=== PATIENT | female | born 1960 | race African-American/Black ===

== ENCOUNTER 2018-07-01 09:38 | Day surgery (SDC) | payer OTHER ==
[~2018-07-01] VITALS: Ht 167.6 cm; Wt 88.9 kg
[~2018-07-01 09:38] MED LIST: ALBU0.63 NEB; ALLO100T PO; AMLO10TA4 PO; AMLO5TAB7 PO; HYDR-2762 PO; HYDROmorphone 2 MG/ML VIAL IV PRN; IBUP-1227 PO; IPRA3AMP29 NEB; IPRA4AER IH; IV RINGERS,LACTATED 1000ML 1,000 ML IV SCH; LIDOCAINE 1% PF 2 ML VIAL. ID PRN; LISI-334 PO; Lisinopril PO; MORPHINE SULFATE 2 MG/ML VIAL. IV PRN; NAPR500T8 PO; Nicotine TD; ONDANSETRON PF 4 MG/2 ML VIAL. IV PRN; PANT40TA3 PO; PROCHLORPERAZINE 10 MG/2 ML VIAL. IV PRN; PROPOFOL 20 ML IV ONE; TRAM50TA PO; VARE1TAB21 PO; fentaNYL PF VIAL 100 MCG/2 ML VIAL IV PRN; fentaNYL PF VIAL 100 MCG/2 ML VIAL ONE
[2018-07-01] MEDS ORDERED: BUPIVACAINE MPF 0.5% 30 ML VIAL. ONE (10:05)
[2018-07-01] MEDS ORDERED: CLINDAMYCIN 900MG PREMIX 50 ML IV ONE (10:30)
--- NOTE | 2018-07-01 10:30 | DISCH ---
DISCHARGE INSTRUCTIONS Condition on Discharge Condition on Discharge: Stable Activity After Discharge Activity Instructions for Disc: Activity as tolerated, Other, see below Bathing Instructions: Shower-keep dressing dry Lifting Instructions after Dis: No heavy lifting Exercise Instruction after Dis: Progress as tolerated Driving Instructions after Dis: Do not drive Weight Bearing Status after Di: Non weight bearing Diet after Discharge Diet after Discharge: Regular Diet Texture: Regular Liquid Texture: Thin Liquid Swallowing Supervision: None needed Wound Incision Care Wound/Incision Care: No wound care needed Checks after Discharge Checks after discharge: Check blood press - daily Contacting the [facility] after DC Call your doctor for: Concerns you may have Follow-Up Follow up with: Katheryn in 2 wks Treatment/Equipment after DC Adaptive Equipment Issued: Erlinchair ANGELIC ROSALES II, MD Jul 01, 2018 10:30
[2018-07-01] MEDS ORDERED: SEVOFLURANE 61 TO 120 MINUTES. IH ONE (10:55)
[2018-07-01] MEDS ORDERED: ONDANSETRON PF 4 MG/2 ML VIAL. ONE (10:55)
[2018-07-01] MEDS ORDERED: DEXAMETHASONE SOD PHOS 20 MG/5 ML VIAL. ONE (10:55)
[2018-07-01] MEDS ORDERED: LIDOCAINE 1% Multi-Dose 50 ML VIAL. INJ ONE (11:15)
--- NOTE | 2018-07-01 11:49 | PDOC4 ---
Operative Note Operative Note Date of procedure: 07/01/2018 Surgeon: Yasir Rosales [employer] Manager: Torie Lee, board certified family physician Preoperative diagnosis: #1 Closed left distal fibula fracture #2 fractures at his metatarsals 2 3 and 4, closed Postoperative diagnosis: #1 closed left distal fibula fracture #2 fractures of metatarsals 2 and 3 and 4, closed Procedure performed: #1 open reduction internal fixation left distal fibula fracture #2 examination under anesthesia, stress view, left ankle #3 nonoperative treatment of fractures of metatarsals 23 and 4 Anesthesia: Gen. Findings: Lateral talar shift present with external rotation stress under sedation Blood loss: 10 mL Tourniquet time: Less than 60 minutes Components inserted: Flores and nephew 5 hole distal fibula locking plate Reason for procedure. Patient is a 50-year-old female had a twisting injury to 4 and ankle. I'd seen in consultation last week. Given her metatarsal fractures she was unable to tolerate weightbearing and therefore I discussed local anesthetic and stress view versus examination under anesthesia and she elected to proceed with the examination under anesthesia. The risks, benefits, and alternatives were discussed with her and she wished to proceed. Description of procedure: Patient was greeted in the preoperative holding area where the correct extremity was verified and marked. I inspected her soft tissues, amenable for today's procedure. She was taken back to the operative suite and her antibiotics started as she was brought back. Once in the operating room, transferred gently supine to the OR table and secured to the bed with all pressure points padded. She underwent sedation monitored by anesthesia with propofol. I brought in C-arm and perform my examination under anesthesia which confirmed lateral talar shift. We then applied a nonsterile tourniquet and taped in place. She underwent general anesthetic with an LMA at this point. Left lower extremity prepped and draped in our usual sterile fashion. Timeout was conducted. Extremity was exsanguinated with an Esmarch and tourniquet insufflated to 250 mmHg. After this, I palpated and marked surface anatomy and afshan a line from a straight lateral incision. I incised skin with a scalpel and dissected subcutaneous tissues tissue with Metzenbaums, using electrocautery for hemostasis. Identified the fracture site and used a periosteal elevator to expose the bone in anticipation my plate application. I used a combination of small Jace, dental pick, metal tipped suction device to debride the fracture site. The fracture was then reduced with [id number] clamp, checked under biplanar fluoroscopy. Given the narrow medial lateral dimension of her bone, I felt that risked comminuting this area and elected not to place a screw in lag fashion across the fracture site. At this point, I held my plate against bone and took my images and was happy with plate position. I then secured it with a nonlocking screw proximal fracture site and one distal to the fracture site. I then filled the remainder the screw holes distal to the fracture site with locking screws. I avoided the fracture site and placed 2 more nonlocking screws through the shaft and plate. I then performed an extra rotation stress test, no widening noted. I then took my final 3 views and was happy with fracture reduction and hardware position. The wound was then irrigated out with sterile saline. I close fascia with simple interrupted #1 Vicryl. Inverted interrupted 2-0 Vicryl used for subcutaneous tissue and 2-0 nylon in a mattress fashion for skin. Approximately 20 mL of a local anesthetic mixture was infiltrated into the subcutaneous. Incisional tissues. The leg was cleansed and dried and a sterile dressing was applied followed by a well-padded AO splint. Tourniquet was let down. Patient was awakened from anesthesia, no complications. Surgery was well tolerated by her. At the conclusion of the surgery, she was transferred gently supine to the recovery room cart and taken to the PACU in a stable and extubated condition. Postoperative plan is to discharge her home, nonweightbearing, she will follow up with me in 2 weeks, sooner should a problem arise YASIR ROSALES II, MD Jul 01, 2018 11:49
[2018-07-01] MEDS ORDERED: OXYC-323 PO (12:07)
[2018-07-01] MEDS ORDERED: hydrALAZINE 20 MG/ML VIAL. IVP ONE (12:45)
[2018-07-01] MEDS ORDERED: LABETALOL 20 MG/4 ML DISP.SYRIN. IVP ONE (13:07)
[2018-07-01 13:45] VITALS: BP 156/94
== END 2018-07-01 13:45 | disposition home or self-care (01) ==
LOC: SURG 09:38
PROVIDERS: ATTEND Orthopaedic Surgery Sports Medicine
DX: S82.62XA Displaced fracture of lateral malleolus of left fibula, initial encounter for closed fracture (principal); S92.322A Displaced fracture of second metatarsal bone, left foot, initial encounter for closed fracture; S92.332A Displaced fracture of third metatarsal bone, left foot, initial encounter for closed fracture; S92.342A Displaced fracture of fourth metatarsal bone, left foot, initial encounter for closed fracture; I10 Essential (primary) hypertension; J44.9 Chronic obstructive pulmonary disease, unspecified; Z86.73 Personal history of transient ischemic attack (TIA), and cerebral infarction without residual deficits; Z98.890 Other specified postprocedural states; Z72.89 Other problems related to lifestyle; F12.90 Cannabis use, unspecified, uncomplicated; F14.10 Cocaine abuse, uncomplicated; Z79.899 Other long term (current) drug therapy; Z88.0 Allergy status to penicillin; X50.1XXA Overexertion from prolonged static or awkward postures, initial encounter; Y93.89 Activity, other specified; Y92.89 Other specified places as the place of occurrence of the external cause; Y99.8 Other external cause status
CPT/HCPCS: 27792; 76000; A7015; J1100; J2405; J2704; J3010; J3490; J7120; J0360

== ENCOUNTER 2018-07-07 15:44 | Emergency (ER) | payer OTHER ==
[~2018-07-07] VITALS: Ht 154.9 cm; Wt 77.1 kg
[~2018-07-07 15:44] MED LIST changes: -HYDROmorphone 2 MG/ML VIAL IV PRN; -IV RINGERS,LACTATED 1000ML 1,000 ML IV SCH; -LIDOCAINE 1% PF 2 ML VIAL. ID PRN; -MORPHINE SULFATE 2 MG/ML VIAL. IV PRN; -ONDANSETRON PF 4 MG/2 ML VIAL. IV PRN; +OXYC-323 PO; -PROCHLORPERAZINE 10 MG/2 ML VIAL. IV PRN; -PROPOFOL 20 ML IV ONE; -fentaNYL PF VIAL 100 MCG/2 ML VIAL IV PRN; -fentaNYL PF VIAL 100 MCG/2 ML VIAL ONE
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
[2018-07-07 16:56] LABS: BASO # 0.1 x10^3/uL (0.0-0.2); BASO % 1 % (0-3); EOS # 0.1 x10^3/uL (0.0-0.7); EOS % 1 % (0-3); HEMATOCRIT 40.8 % (36.0-47.0); HEMOGLOBIN 13.5 g/dL (12.0-15.5); LYMPH % 32 % (24-48); MEAN CORPUSCULAR HEMOGLOBIN 28 pg (25-35); MEAN CORPUSCULAR HGB CONC 33 g/dL (31-37); MEAN CORPUSCULAR VOLUME 84 fL (79-100); MONO # 0.5 x10^3/uL (0.0-1.1); MONO % 8 % (0-9); NEUT # 3.6 x10^3uL (1.8-7.7); NEUT % 58 % (31-73); PLATELET COUNT 241 x10^3/uL (140-400); RED BLOOD COUNT 4.88 x10^6/uL (3.50-5.40); RED CELL DISTRIBUTION WIDTH 15.8 % (11.5-14.5); WHITE BLOOD COUNT 6.2 x10^3/uL (4.0-11.0)
[2018-07-07] MEDS ORDERED: amLODIPine BESYLATE 5 MG TABLET PO ONE (17:00)
[2018-07-07 17:07] LABS: CALCIUM 9.5 mg/dL (8.5-10.1); CREATININE 1.3 mg/dL (0.6-1.0); GFR 50.9; POTASSIUM 3.8 mmol/L (3.5-5.1)
[2018-07-07 17:13] LABS: ALBUMIN 3.3 g/dL (3.4-5.0); ALBUMIN/GLOBULIN RATIO 0.7 (1.0-1.7); TOTAL BILIRUBIN 0.2 mg/dL (0.2-1.0); TOTAL PROTEIN 7.8 g/dL (6.4-8.2)
[2018-07-07 17:39] LABS: BILIRUBIN,URINE NEGATIVE (NEG); COLOR,URINE YELLOW; NITRITE,URINE NEGATIVE (NEG); PH,URINE 5.5; PROTEIN,URINE 100 mg/dL (NEG-TRACE); UROBILINOGEN,URINE 0.2 mg/dL (0.2 mg/dL)
[2018-07-07 17:59] LABS: CLARITY,URINE CLEAR
[2018-07-07 18:01] VITALS: BP 166/108
[2018-07-07 18:01] LABS: BACTERIA,URINE FEW /HPF (0-FEW); RBC,URINE 0 /HPF (0-2); SQUAMOUS EPITHELIAL CELL,UR FEW /LPF; WBC,URINE 0 /HPF (0-4)
--- NOTE | 2018-07-08 01:29 | EKG ---
[facility] [address] [place] [address] Test Date: 2018-07-07 Test Time: 17:00:41 Pat Name: JACQUES RIOS Department: Room: Gender: F Broom Maker: : [id number] Requested By: OLENA CHOUDHURY Order Number: [id number] Reading MD: Johnathan Umanzor MD Measurements Intervals Cook Rate: 90 P: 31 IL: 210 QRS: -35 QRSD: 72 T: 66 QT: 358 QTc: 442 Interpretive Statements SINUS RHYTHM PROLONGED IL INTERVAL ABNORMAL LEFT AXIS DEVIATION LEFT ANTERIOR FASCICULAR BLOCK T ABNORMALITY IN HIGH LATERAL LEADS ABNORMAL ECG Electronically Signed On 07-09-2018 9:54:12 CDT by Johnathan Umanzor MD
== END 2018-07-07 18:20 | disposition home or self-care (01) ==
LOC: ER 15:44
DX: R03.0 Elevated blood-pressure reading, without diagnosis of hypertension (principal); R80.9 Proteinuria, unspecified; Z91.14 Patient's other noncompliance with medication regimen; Z88.0 Allergy status to penicillin
CPT/HCPCS: 36415; 80053; 81001; 83880; 84484; 85025; 93005; 99285; G0480

== ENCOUNTER 2019-05-24 12:11 | Inpatient (IN) | payer MEDICAID, OTHER ==
[~2019-05-24] VITALS: Ht 162.6 cm; Wt 81.3 kg
[~2019-05-24 12:11] MED LIST changes: +AMLO5TAB10 PO; -AMLO5TAB7 PO; -HYDR-2762 PO; +HYDR-2765 PO; -IBUP-1227 PO; +IBUP-1670 PO; -OXYC-323 PO; +OXYC1TAB15 PO; -PANT40TA3 PO; +PANT40TA77 PO
[2019-05-24 13:36] LABS: BASO # 0.1 x10^3/uL (0.0-0.2); BASO % 1 % (0-3); EOS # 0.2 x10^3/uL (0.0-0.7); EOS % 3 % (0-3); HEMATOCRIT 39.8 % (36.0-47.0); HEMOGLOBIN 13.1 g/dL (12.0-15.5); LYMPH # 1.6 x10^3/uL (1.0-4.8); LYMPH % 30 % (24-48); MEAN CORPUSCULAR HEMOGLOBIN 27 pg (25-35); MEAN CORPUSCULAR HGB CONC 33 g/dL (31-37); MEAN CORPUSCULAR VOLUME 82 fL (79-100); MONO # 0.3 x10^3/uL (0.0-1.1); MONO % 6 % (0-9); NEUT # 3.3 x10^3/uL (1.8-7.7); NEUT % 60 % (31-73); PLATELET COUNT 175 x10^3/uL (140-400); RED BLOOD COUNT 4.82 x10^6/uL (3.50-5.40); WHITE BLOOD COUNT 5.4 x10^3/uL (4.0-11.0)
[2019-05-24 13:45] LABS: PROTHROMBIN TIME PATIENT 13.8 SEC (11.7-14.0)
[2019-05-24 13:50] LABS: CALCIUM 9.3 mg/dL (8.5-10.1); CREATININE 1.4 mg/dL (0.6-1.0); GFR 46.6; POTASSIUM 3.5 mmol/L (3.5-5.1)
[2019-05-24 13:56] LABS: ALBUMIN 3.4 g/dL (3.4-5.0); ALBUMIN/GLOBULIN RATIO 0.8 (1.0-1.7); TOTAL BILIRUBIN 0.5 mg/dL (0.2-1.0); TOTAL PROTEIN 7.6 g/dL (6.4-8.2)
--- NOTE | 2019-05-24 13:59 | RAD ---
CT HEAD WO CONTRAST Indication: Headache, history of aneurysms Exposure: One or more of the following individualized dose reduction techniques were utilized for this examination: 1. Automated exposure control 2. Adjustment of the mA and/or kV according to patient size 3. Use of iterative reconstruction technique. Technique: Standard imaging without intravenous contrast. Comparison: 06/24/2018 FINDINGS: Motion during exam results in image degradation. No definite acute intracranial hemorrhage, mass effect, midline shift or abnormal extra-axial fluid collection. Low-density in the white matter bilaterally, a nonspecific finding, but which is commonly due to chronic small vessel ischemic disease in a patient of this age. Low-density in the right basal ganglia region may be new since the previous study, compatible with ischemia in the interval. Generalized atrophy. Moderate mucosal thickening of the sphenoid sinus. No evidence of skull abnormality. Visualized orbits appear unremarkable. IMPRESSION: 1. Exam limited due to motion degradation. 2. Subtle area of hypoattenuation in the right periventricular white matter or basal ganglia, could represent an area of small vessel ischemia which occurred in the interim since the old study, but age indeterminate. MR could be more accurate for detection of acute ischemia, as indicated. 3. No definite acute intracranial hemorrhage. 4. Sphenoid sinus disease. Electronically signed by: Cezar Sherman MD (05/24/2019 1:56 PM) [facility]
[2019-05-24] MEDS ORDERED: ASPIRIN 325 MG TABLET PO ONE (14:15)
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
--- NOTE | 2019-05-24 14:38 | RAD ---
Single view portable chest HISTORY: Shortness of breath COMPARISON: None FINDINGS: The cardiomediastinal silhouette is widened. Hazy opacity in both lungs, greater towards the bases, compatible with infiltrate/edema. No large pleural effusion. No evidence of pneumothorax. Central vascular congestion. No definite bone abnormality. Some density along the right paratracheal chest is probably vascular, has a fairly smooth margin. IMPRESSION: 1. Findings suggest congestive changes with bilateral pulmonary edema or infiltrate. Some enlargement of cardiac silhouette. 2. Widening of the right superior mediastinum is probably vascular in nature. Could be observed on future imaging. Electronically signed by: Cezar Sherman MD (05/24/2019 2:35 PM) [facility]
[2019-05-24] MEDS: hydrALAZINE 20 MG/ML VIAL. IVP PRN ×2 (14:57→19:51)
[2019-05-24] MEDS ORDERED: FUROSEMIDE 20 MG/2 ML VIAL. IVP SCH (15:00)
[2019-05-24 16:21] LABS: BILIRUBIN,URINE NEGATIVE (NEG); CLARITY,URINE CLEAR; COLOR,URINE YELLOW; NITRITE,URINE NEGATIVE (NEG); PH,URINE 6.5; PROTEIN,URINE NEGATIVE (NEG-TRACE); UROBILINOGEN,URINE 0.2 mg/dL (0.2 mg/dL)
[2019-05-24 16:27] LABS: BACTERIA,URINE MODERATE /HPF (0-FEW); BARBITURATES NEG (NEG); BENZODIAZEPINES NEG (NEG); CANNABINOIDS NEG (NEG); COCAINE POS (NEG); METHADONE NEG (NEG); OPIATES NEG (NEG); PHENCYCLIDINE NEG (NEG); RBC,URINE 0 /HPF (0-2); SQUAMOUS EPITHELIAL CELL,UR MOD /LPF; WBC,URINE 0 /HPF (0-4)
[2019-05-24 16:28] LABS: AMPHETAMINE/METHAMPHETAMINE NEG (NEG)
[2019-05-24] MEDS ORDERED: LISI10TA2 PO (16:51)
[2019-05-24 17:04] VITALS: BP 174/117
--- NOTE | 2019-05-24 17:04 | EKG ---
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
[2019-05-24 17:16] VITALS: BP 175/115
[2019-05-24] MEDS ORDERED: FUROSEMIDE 20 MG TABLET PO SCH (17:45)
[2019-05-24] MEDS: LISINOPRIL 20 MG TABLET PO SCH (18:15)
[2019-05-24] MEDS: POTASSIUM CHLORIDE 20 MEQ TABLET.ER. PO SCH (18:15)
[2019-05-24] MEDS: amLODIPine BESYLATE 10 MG TABLET PO SCH (18:15)
[2019-05-24] MEDS ORDERED: FUROSEMIDE 20 MG TABLET PO ONE (18:30)
[2019-05-24] MEDS: IPRATRPIUM/ALBUTEROL 0.5/2.5MG 3 ML NEBU. NEB SCH (19:11)
[2019-05-24 19:37] VITALS: BP 184/122
[2019-05-24 22:54] VITALS: BP 152/96
[2019-05-25 03:30] VITALS: BP 132/92
[2019-05-25 06:34] LABS: CALCIUM 9.5 mg/dL (8.5-10.1); CREATININE 1.2 mg/dL (0.6-1.0); GFR 55.6; POTASSIUM 3.3 mmol/L (3.5-5.1)
--- NOTE | 2019-05-25 06:59 | EKG ---
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
[2019-05-25 07:00] VITALS: BP 139/100
--- NOTE | 2019-05-25 07:02 | EKG ---
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
[2019-05-25] MEDS: POTASSIUM CHLORIDE 20 MEQ TABLET.ER. PO SCH (08:00)
[2019-05-25] MEDS: ACETAMINOPHEN 325 MG TABLET. PO PRN ×2 (08:02→20:27)
[2019-05-25] MEDS: IPRATRPIUM/ALBUTEROL 0.5/2.5MG 3 ML NEBU. NEB SCH ×4 (08:27→20:34)
--- NOTE | 2019-05-25 08:49 | EKG ---
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
[2019-05-25] MEDS: FUROSEMIDE 40 MG TABLET. PO SCH (09:11)
[2019-05-25] MEDS: LISINOPRIL 20 MG TABLET PO SCH (09:11)
[2019-05-25] MEDS: amLODIPine BESYLATE 10 MG TABLET PO SCH (09:11)
--- NOTE | 2019-05-25 10:09 | PDOC2 ---
CARDIAC CONSULT DATE OF CONSULT Date of Consult DATE: 05/25/19 TIME: 10:02 REASON FOR CONSULT Reason for Consult: Elevated troponin REFERRING PHYSICIAN Referring Physician: Dr. Peñaloza SOURCE Source: Chart review, Patient HISTORY OF PRESENT ILLNESS HISTORY OF PRESENT ILLNESS This is a 59 yo female who presented secondary to shortness of breath. Troponin noted at 0.033, which prompted this consult. UDS positive for cocaine. Reports she had been short of breath for the last couple of days. No chest pain, dizziness, diaphoresis, palpitations, or nausea/vomiting. No recent illness/fevers. PAST MEDICAL HISTORY Cardiovascular: HTN Pulmonary: COPD CENTRAL NERVOUS SYSTEM: CVA GI: Gastritis Psych: Anxiety Musculoskeletal: Osteoarthritis Rheumatologic: Gout Renal/: Chronic renal insuff PAST SURGICAL HISTORY Past Surgical History ORIF left ankle 07/01/18, Past Surgical History: No pertinent history FAMILY HISTORY Family History: Other (no pertinent history ) SOCIAL HISTORY Smoke: <1 pack per day ALCOHOL: heavy (2 beers and 1/2 pint vodka 2-3 times per weak) Drugs: Cocaine Lives: with Family CURRENT MEDICATIONS CURRENT MEDICATIONS Current Medications Medications (Trade) Dose Ordered Sig/Josemanuel Route PRN Reason Start Time Stop Time Status Last Admin Dose Admin Aspirin (Gisela Aspirin) 325 mg 1X ONCE PO 05/24/19 14:15 05/24/19 14:16 DC 05/24/19 14:57 Hydralazine HCl (Apresoline Inj) 10 mg PRN Q4HRS PRN IVP SBP >140 05/24/19 14:30 05/24/19 19:51 Furosemide (Lasix) 20 mg DAILY IVP 05/24/19 15:00 05/24/19 18:01 DC 05/24/19 15:47 Albuterol/ Ipratropium (Duoneb) 3 ml RTQID NEB 05/24/19 20:00 05/25/19 08:27 Potassium Chloride (Klor-Con) 20 meq DAILYWBKFT PO 05/24/19 17:45 05/25/19 09:12 Lisinopril (Prinivil) 40 mg DAILY PO 05/24/19 17:45 05/25/19 09:12 Furosemide (Lasix) 40 mg DAILY PO 05/25/19 09:00 05/25/19 09:12 Amlodipine Besylate (Norvasc) 10 mg DAILY PO 05/24/19 17:45 05/25/19 09:12 Acetaminophen (Tylenol) 650 mg PRN Q6HRS PRN PO PAIN MILD 05/24/19 17:45 05/25/19 08:02 Furosemide (Lasix) 20 mg 1X ONCE PO 05/24/19 18:30 05/24/19 18:31 DC 05/24/19 18:20 ALLERGIES ALLERGIES: Coded Allergies: Penicillins (Verified Allergy, Intermediate, rash, 06/30/18) ROS Review of System 14 point ROS conducted with pertinent positives noted above in HPI PHYSICAL EXAM General: Alert, Oriented X3, Cooperative, No acute distress HEENT: Atraumatic, Mucous membr. moist/pink Lungs: Clear to auscultation, Other (crackles ) Heart: Regular rate (SR/ST), Normal S1, Normal S2 Abdomen: Soft, No tenderness Extremities: No edema, Normal pulses Skin: No significant lesion Neuro: Normal speech, Sensation intact Psych/Mental Status: Other (drowsy ) MUSCULOSKELETAL: Osteoarthritic changes both hands VITALS/I&O VITALS/I&O: Vital Signs Date Time Temp Pulse Resp B/P (MAP) Pulse Ox O2 Delivery O2 Flow Rate FiO2 05/25/19 09:12 97 139/100 05/25/19 08:29 98 Room Air 05/25/19 07:00 98.2 18 98.2 I & O 05/24/19 05/24/19 05/25/19 15:00 23:00 07:00 Intake Total 540 ml Output Total 1700 ml 225 ml Balance -1700 ml 315 ml LABS Lab: Laboratory Tests Test 05/24/19 13:20 05/24/19 16:14 05/24/19 18:05 05/25/19 00:20 White Blood Count 5.4 x10^3/uL (4.0-11.0) Red Blood Count 4.82 x10^6/uL (3.50-5.40) Hemoglobin 13.1 g/dL (12.0-15.5) Hematocrit 39.8 % (36.0-47.0) Mean Corpuscular Volume 82 fL (79-100) Mean Corpuscular Hemoglobin 27 pg (25-35) Mean Corpuscular Hemoglobin Concent 33 g/dL (31-37) Red Cell Distribution Width 16.0 % (11.5-14.5) H Platelet Count 175 x10^3/uL (140-400) Neutrophils (%) (Auto) 60 % (31-73) Lymphocytes (%) (Auto) 30 % (24-48) Monocytes (%) (Auto) 6 % (0-9) Eosinophils (%) (Auto) 3 % (0-3) Basophils (%) (Auto) 1 % (0-3) Neutrophils # (Auto) 3.3 x10^3/uL (1.8-7.7) Lymphocytes # (Auto) 1.6 x10^3/uL (1.0-4.8) Monocytes # (Auto) 0.3 x10^3/uL (0.0-1.1) Eosinophils # (Auto) 0.2 x10^3/uL (0.0-0.7) Basophils # (Auto) 0.1 x10^3/uL (0.0-0.2) Prothrombin Time 13.8 SEC (11.7-14.0) Prothrombin Time INR 1.1 (0.8-1.1) Activated Partial Thromboplast Time 26 SEC (24-38) Sodium Level 144 mmol/L (136-145) Potassium Level 3.5 mmol/L (3.5-5.1) Chloride Level 107 mmol/L (98-107) Carbon Dioxide Level 25 mmol/L (21-32) Anion Gap 12 (6-14) Blood Urea Nitrogen 21 mg/dL (7-20) H Creatinine 1.4 mg/dL (0.6-1.0) H Estimated GFR (Cockcroft-Gault) 46.6 BUN/Creatinine Ratio 15 (6-20) Glucose Level 153 mg/dL (70-99) H Calcium Level 9.3 mg/dL (8.5-10.1) Total Bilirubin 0.5 mg/dL (0.2-1.0) Aspartate Amino Transferase (AST) 14 U/L (15-37) L Alanine Aminotransferase (ALT) 12 U/L (14-59) L Alkaline Phosphatase 66 U/L (46-116) Creatine Kinase 83 U/L (26-192) Creatine Kinase MB (Mass) 1.3 ng/mL (0.0-3.6) Creatine Kinase MB Relative Index 1.6 % (0-4) Troponin I Quantitative 0.022 ng/mL (0.000-0.055) < 0.017 ng/mL (0.000-0.055) 0.023 ng/mL (0.000-0.055) UJ-Fbh-A-Type Natriuretic Peptide 2678 pg/mL (0-124) H Total Protein 7.6 g/dL (6.4-8.2) Albumin 3.4 g/dL (3.4-5.0) Albumin/Globulin Ratio 0.8 (1.0-1.7) L Urine Collection Type Unknown Urine Color Yellow Urine Clarity Clear Urine pH 6.5 Urine Specific [place] <=1.005 Urine Protein Negative mg/dL (NEG-TRACE) Urine Glucose (UA) Negative mg/dL (NEG) Urine Ketones (Stick) Negative mg/dL (NEG) Urine Blood Negative (NEG) Urine Nitrite Negative (NEG) Urine Bilirubin Negative (NEG) Urine Urobilinogen Dipstick 0.2 mg/dL (0.2 mg/dL) Urine Leukocyte Esterase Negative (NEG) Urine RBC 0 /HPF (0-2) Urine WBC 0 /HPF (0-4) Urine Squamous Epithelial Cells Mod /LPF Urine Bacteria Moderate /HPF (0-FEW) Urine Opiates Screen Neg (NEG) Urine Methadone Screen Neg (NEG) Urine Barbiturates Neg (NEG) Urine Phencyclidine Screen Neg (NEG) Urine Amphetamine/Methamphetamine Neg (NEG) Urine Benzodiazepines Screen Neg (NEG) Urine Cocaine Screen Pos (NEG) Urine Cannabinoids Screen Neg (NEG) Urine Ethyl Alcohol Neg (NEG) Test 05/25/19 05:45 Sodium Level 145 mmol/L (136-145) Potassium Level 3.3 mmol/L (3.5-5.1) L Chloride Level 109 mmol/L (98-107) H Carbon Dioxide Level 23 mmol/L (21-32) Anion Gap 13 (6-14) Blood Urea Nitrogen 19 mg/dL (7-20) Creatinine 1.2 mg/dL (0.6-1.0) H Estimated GFR (Cockcroft-Gault) 55.6 Glucose Level 97 mg/dL (70-99) Calcium Level 9.5 mg/dL (8.5-10.1) Troponin I Quantitative 0.030 ng/mL (0.000-0.055) Laboratory Tests 05/24/19 13:20 Laboratory Tests 05/24/19 13:20 05/25/19 05:45 ECHOCARDIOGRAM ECHOCARDIOGRAM <Conclusion> The left ventricular systolic function is normal. The Ejection Fraction is estimated at 55-60%. There is normal LV segmental wall motion. Transmitral Doppler flow pattern is Grade I-abnormal relaxation pattern. Mild aortic regurgitation. Trace mitral regurgitation.Trace tricuspid valve regurgitation. There is no evidence of significant pericardial effusion. DATE: 06/05/15 [id number] ASSESSMENT/PLAN ASSESSMENT/PLAN 1. Dyspnea secondary to acute on chronic probable diastolic CHF 2. Accelerated hypertension; due to med noncompliance; better controlled 3. Mild troponin elevation; highest 0.03. Most probably type II, demand ischemic in the setting of accelerated HTN, acute CHF, and cocaine abuse. 4. Hypokalemia; replaced 5. CKD; Cr stable 6. COPD 7. Substance abuse; cocaine 8. ETOH abuse 9. Tobaccoism Recommendations Diuresis ASA Lipid panel Echo to assess LV systolic function Discussed/encouraged cessation from substance use/abuse and tobacco Encourage compliance with medication Consider outpatient ischemic evaluation RADHA DOSS APRN May 25, 2019 10:09
[2019-05-25 11:00] VITALS: BP 131/85
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
--- NOTE | 2019-05-25 12:40 | NUR ---
SS following for discharge planning. SS reviewed pt chart. Pt is from home and is currently on room air. No discharge needs noted at this time. SS will continue to follow for discharge planning.
[2019-05-25] MEDS: BENZONATATE 100 MG CAPSULE. PO SCH ×2 (14:39→20:27)
[2019-05-25] MEDS ORDERED: IPRATRPIUM/ALBUTEROL 0.5/2.5MG 3 ML NEBU. NEB SCH (16:00)
[2019-05-25 17:50] LABS: CHOLESTEROL/HDL RATIO 2.4
[2019-05-25] MEDS: ASPIRIN ENTERIC COATED 81 MG TABLET.DR. PO SCH (18:36)
[2019-05-25 19:19] VITALS: BP 143/110
[2019-05-25] MEDS: BUDESONIDE 0.5 MG/2 ML NEBU. NEB SCH (20:34)
[2019-05-25 23:33] VITALS: BP 137/92
[2019-05-26 02:57] VITALS: BP 148/107
[2019-05-26 06:29] LABS: CALCIUM 9.2 mg/dL (8.5-10.1); CREATININE 1.3 mg/dL (0.6-1.0); GFR 50.7; POTASSIUM 3.4 mmol/L (3.5-5.1)
[2019-05-26 07:00] VITALS: BP 131/87
[2019-05-26] MEDS: BUDESONIDE 0.5 MG/2 ML NEBU. NEB SCH (07:25)
[2019-05-26] MEDS: IPRATRPIUM/ALBUTEROL 0.5/2.5MG 3 ML NEBU. NEB SCH ×3 (07:25→16:14)
[2019-05-26] MEDS: POTASSIUM CHLORIDE 20 MEQ TABLET.ER. PO SCH (08:53)
[2019-05-26] MEDS: ASPIRIN ENTERIC COATED 81 MG TABLET.DR. PO SCH (08:53)
[2019-05-26] MEDS: FUROSEMIDE 40 MG TABLET. PO SCH (08:54)
[2019-05-26] MEDS: ACETAMINOPHEN 325 MG TABLET. PO PRN (08:54)
[2019-05-26] MEDS: BENZONATATE 100 MG CAPSULE. PO SCH ×2 (08:54→14:11)
[2019-05-26] MEDS: amLODIPine BESYLATE 10 MG TABLET PO SCH (08:54)
[2019-05-26] MEDS: LISINOPRIL 20 MG TABLET PO SCH (08:56)
--- NOTE | 2019-05-26 09:25 | RAD ---
Chest, PA and Lateral: Technique: PA and lateral views of the chest were obtained. History: Follow-up edema, infiltrates. Comparison: 05/24/2019. Findings: Low lung volumes accentuates heart size and pulmonary vascularity. Faint patchy airspace opacities identified in the bilateral lungs likely atelectasis or infiltrates. Minimal prominent bilateral interstitial lung markings. Probable emphysematous changes identified in the right apical lung region. IMPRESSION: 1. Mild improved patchy airspace opacities identified in the bilateral lungs. Electronically signed by: Barrett Dunbar MD (05/26/2019 9:22 AM) [id number]
[2019-05-26 11:00] VITALS: BP 127/84
--- NOTE | 2019-05-26 13:04 | PDOC ---
CARDIO Progress Notes Date and Time Date of Service 05/26/19 Time of Evaluation 1240 Subjective Subjective: No Chest Pain, No shortness of breath, No Palpitations Vitals Vitals Vital Signs Date Time Temp Pulse Resp B/P (MAP) Pulse Ox O2 Delivery O2 Flow Rate FiO2 05/26/19 11:14 Room Air 05/26/19 11:00 97.9 86 20 127/84 (98) 96 97.9 Weight Weight [ ] Input and Output Intake and Output Intake and Output 05/26/19 07:00 Intake Total 1300 ml Output Total 901 ml Balance 399 ml Intake Oral 1300 ml Output Urine Total 900 ml Stool Total 1 ml # Voids 2 Laboratory Labs Laboratory Tests Test 05/26/19 06:05 Sodium Level 142 mmol/L (136-145) Potassium Level 3.4 mmol/L (3.5-5.1) Chloride Level 107 mmol/L (98-107) Carbon Dioxide Level 25 mmol/L (21-32) Anion Gap 10 (6-14) Blood Urea Nitrogen 27 mg/dL (7-20) Creatinine 1.3 mg/dL (0.6-1.0) Estimated GFR (Cockcroft-Gault) 50.7 Glucose Level 84 mg/dL (70-99) Calcium Level 9.2 mg/dL (8.5-10.1) Physical Exam HEENT: Neck Supple W Full Motion Chest: Symmetric LUNGS: Clear to Auscultation, Other (diminished bases) Heart: S1S2, RRR Abdomen: Soft N/T Extremities: No Edema Neurology: alert, oriented, follow commands Assessment Assessment 1. Dyspnea secondary to acute on chronic systolic CHF. better compensated. Echo showed LVEF 40% 2. Accelerated hypertension; due to med noncompliance; now well controlled 3. Mild troponin elevation; highest 0.03. Most probably type II, demand ischemic in the setting of accelerated HTN, acute CHF, and cocaine abuse. 4. Hypokalemia 5. CKD; Cr stable 6. COPD 7. Substance abuse; cocaine 8. ETOH abuse 9. Tobaccoism Recommendations Replace K Continue ASA, lisinopril, Norvasc, Lasix No BB with cocaine use Reinforced cessation from substance use/abuse and tobacco along with medical compliance Will arrange for outpatient ischemic evaluation Follow up with Dr. Mitchell as scheduled. RADHA DOSS APRN May 26, 2019 13:04
[2019-05-26] MEDS ORDERED: POTA20TA4 PO (15:15)
[2019-05-26] MEDS ORDERED: POTASSIUM CHLORIDE 20 MEQ TABLET.ER. PO ONE (15:15)
[2019-05-26] MEDS ORDERED: FURO40TA4 PO (15:15)
[2019-05-26] MEDS ORDERED: LISI-130 PO (15:15)
[2019-05-26] MEDS ORDERED: ASPI-612 PO (15:15)
[2019-05-26] MEDS ORDERED: AMLO10TA8 PO (15:15)
--- NOTE | 2019-05-26 15:22 | PDOC3 ---
Discharge Summary [facility] Date of Admission: May 24, 2019 Discharge Date: May 26, 2019 Admitting Diagnosis hypertensive crisis from cocaine abuse with acute on now chronic diastolic heart failure Final Diagnosis Problems Medical Problems: (1) Acute diastolic heart failure Status: Acute (2) CHF (congestive heart failure) Status: Acute (3) CKD (chronic kidney disease), stage II Status: Chronic (4) Elevated troponin Status: Acute (5) Hypertension Status: Acute (6) Hypertensive crisis Status: Acute (7) Hypokalemia Status: Acute CONSULTS cardiology Procedures none Brief Hospital Course Ms. Jeter is a 59 old who presented with: Hypertensive crisis from cocaine with abnormal ischemic changes on EKG and elevated troponin - cardiology saw and will arrange for outpatient stress testin g if she can avoid ongoing crack cocaine acute diastolic heart failure - elevated proBnp, diuresed, and now on Lasix and potassium as echo showed EF of 40%f/u CXR to help discern if she also has an infiltrate, consider echo HTN - non compliant recently with meds, avoid BB due to cocaine, lisinopril increased to 40 mg and amlodipine increased to 10 mg COPD with possible bronchitis - WBC normal, withheld antibiotics, continue Combivent at discharge hypokalemia - replaced orally CKD stage 2 - stable hx of gout - asymptomatic Patient History: Patient reports no known family medical history. CONDITION AT DISCHARGE: Stable Diet cardiac Scheduled Amlodipine Besylate (Amlodipine Besylate), 10 MG PO DAILY Aspirin (Aspirin Ec), 81 MG PO DAILYWBKFT Furosemide (Furosemide), 40 MG PO DAILY Ipratropium/Albuterol Sulfate (Combivent Respimat Inhal), 1 INH IH QID, (Reported) Lisinopril (Lisinopril), 40 MG PO DAILY Potassium Chloride (Klor-Con M20), 20 MEQ PO DAILYWBKFT Discontinued Medications Allopurinol (Allopurinol), 100 MG PO BID, (Reported) Amlodipine Besylate (Amlodipine Besylate), 5 MG PO DAILY, (Reported) Ipratropium/Albuterol Sulfate (Duoneb 0.5-3(2.5) Mg/3 Ml), 3 ML NEB QID, (Reported) Lisinopril (Lisinopril), 1 TAB PO BID, (Reported) Oxycodone/Apap 5-325 (Percocet 5-325 Mg Tablet ), 1 TAB PO PRN Q4HRS PRN for PAIN, (Reported) Follow Up 1-2 weeks with me and cardiology in a month Naresh BENITO MD May 26, 2019 15:22
--- NOTE | 2019-05-26 16:34 | NUR ---
Discharge Note: [facility] Discharge instructions and discharge home medications reviewed with Patient and a copy given. All questions have been answered and understanding verbalized. The following instructions and handouts were given: medication list, HTN and drug use education, and called all prescriptions to [facility] pharmacy [address] Discontinued lines and drains: dressing clean, dry and intact. Patient discharged to home with family via wheelchair
--- NOTE | 2019-05-27 13:07 | CARD ---
MR#: [id number] Date of Study: 05/25/2019 Ordering Physician: RADHA DOSS, Referring Physician: RADHA DOSS, Tech: Kathie Hollins RDCS APPROVED REPORT EXAM: Two-dimensional and M-mode echocardiogram with Doppler and color Doppler. Other Information Quality : Good INDICATION Dyspnea 2D DIMENSIONS RVDd2.2 (2.9-3.5cm)Left Atrium(2D)3.8 (1.6-4.0cm) IVSd1.2 (0.7-1.1cm)Aortic Root(2D)3.4 (2.0-3.7cm) LVDd5.4 (3.9-5.9cm)LVOT Diameter2.0 (1.8-2.4cm) PWd1.3 (0.7-1.1cm)LVDs4.1 (2.5-4.0cm) FS (%) 23.8 %SV67.1 ml Aortic Valve AoV Peak Morales.153.2cm/sAoV VTI22.1cm AO Peak GR.9.4mmHgLVOT Peak Morales.117.8cm/s AO Mean GR.6mmHgAVA (VMAX)2.43cm2 KEYON (VTI)2.78mw4PI P 1/2 Vwfp774ay Mitral Valve MV E Arzvmvys36.5cm/sMV DECEL [id number] MV A Zblvudzt83.5cm/sE/A Ratio0.6 Pulmonary Vein S1 Nmmtwfox68.0cm/sD2 Oxqjgtmc89.1cm/s LEFT VENTRICLE The Left Ventricle is mildly dilated. There is mild concentric left ventricular hypertrophy. Left geoff tricle systolic function is mildly impaired. The Ejection Fraction is estimated at 40%. There is mild global hypokinesis of the left ventricle. Transmitral Doppler flow pattern is Grade I-abnormal relax ation pattern. RIGHT VENTRICLE The right ventricle is normal size. The right ventricular systolic function is normal. ATRIA The left atrium size is normal. The right atrium size is normal. The interatrial septum is intact wit h no evidence for an atrial septal defect or patent foramen ovale as noted on 2-D or Doppler imaging. AORTIC VALVE The aortic valve is calcified but opens well. Doppler and Color Flow revealed mild aortic regurgitati on. There is no significant aortic valvular stenosis. MITRAL VALVE The mitral valve is calcified but opens well. Mitral annular calcification is mild. There is no evide nce of mitral valve prolapse. There is no mitral valve stenosis. Doppler and Color-flow revealed mild mitral regurgitation. TRICUSPID VALVE The tricuspid valve is normal in structure and function. Doppler and Color Flow revealed trace tricus pid valve regurgitation. There is no tricuspid valve stenosis. PULMONIC VALVE The pulmonary valve is normal in structure and function. Doppler and Color Flow revealed trace pulmon ic valvular regurgitation. There is no pulmonic valvular stenosis. GREAT VESSELS The aortic root is normal in size. The ascending aorta is mildly dilated at 3.6 cm. The IVC is normal in size and collapses >50% with inspiration. PERICARDIAL EFFUSION There is no evidence of significant pericardial effusion. Critical Notification Critical Value: No <Conclusion> The Left Ventricle is mildly dilated. Left ventricle systolic function is mildly impaired. The Ejection Fraction is estimated at 40%. There is mild global hypokinesis of the left ventricle. There is mild concentric left ventricular hypertrophy. There is no significant aortic valvular stenosis. Doppler and Color Flow revealed mild aortic regurgitation. Doppler and Color-flow revealed mild mitral regurgitation. Doppler and Color Flow revealed trace tricuspid valve regurgitation. The ascending aorta is mildly dilated at 3.6 cm. Signed by : Jesus Schaeffer MD Electronically Approved : 05/25/2019 16:01:01
== END 2019-05-26 16:56 | disposition home or self-care (01) | DRG 917 ==
LOC: ER 12:11 → 2 SOUTH 14:25
PROVIDERS: ADMIT Family Medicine; ATTEND Family Medicine
DX: T40.5X1A Poisoning by cocaine, accidental (unintentional), initial encounter (principal); I50.43 Acute on chronic combined systolic (congestive) and diastolic (congestive) heart failure; I16.9 Hypertensive crisis, unspecified; D64.9 Anemia, unspecified; E87.6 Hypokalemia; F10.10 Alcohol abuse, uncomplicated; F41.9 Anxiety disorder, unspecified; M10.9 Gout, unspecified; M19.90 Unspecified osteoarthritis, unspecified site; F14.10 Cocaine abuse, uncomplicated; F17.210 Nicotine dependence, cigarettes, uncomplicated; I15.8 Other secondary hypertension; J44.9 Chronic obstructive pulmonary disease, unspecified; N18.2 Chronic kidney disease, stage 2 (mild); Z86.73 Personal history of transient ischemic attack (TIA), and cerebral infarction without residual deficits; Z91.14 Patient's other noncompliance with medication regimen; Z88.0 Allergy status to penicillin; Y92.89 Other specified places as the place of occurrence of the external cause; I11.0 Hypertensive heart disease with heart failure
CPT/HCPCS: 36415; 70450; 71045; 71046; 80048; 80053; 80061; 80307; 81001; 82553; 83735; 83880; 84484; 85025; 85610; 85730; 87086; 93005; 93306; 94640; 94760; J0360; J1940; J7620; J7626; 99285-25; G0378

== ENCOUNTER → 2020-12-04 | Outpatient (CLI) | payer MEDICAID ==
[~2020-12-04] MED LIST changes: +AMLO-186 PO; +AMLO-187 PO; -AMLO5TAB10 PO; +ASPI-886 PO; +FURO40TA4 PO; +LISI-130 PO; -LISI-334 PO; +LISI10TA16 PO; +LISI20TA18 PO; +POTA20TA4 PO
--- NOTE | 2020-12-05 15:47 | RAD ---
DATE: 12/04/2020 9:28 AM EXAM: DIGITAL SCREEN BILAT W/CAD HISTORY: Screening COMPARISON: 10/08/2011 Bilateral full field craniocaudal and mediolateral oblique images were obtained using digital technique. This study was interpreted with the benefit of Computerized Aided Detection (CAD). FINDINGS: Breast Density: FATTY The Breast Parenchyma is primarily fatty replaced. Breast parenchyma level density A. No suspicious masses, microcalcifications or architectural distortion is present to suggest malignancy in either breast. The visualized axillae are unremarkable. IMPRESSION: No mammographic evidence of malignancy. BI-RADS CATEGORY: 1 NEGATIVE RECOMMENDED FOLLOW-UP: 12M 12 MONTH FOLLOW-UP Annual screening mammography is recommended, unless clinically indicated sooner based on symptoms or change in physical exam. PQRS compliance statement: Patient information was entered into a reminder system with a target due date for the next mammogram. Mammography is a sensitive method for finding small breast cancers, but it does not detect them all and is not a substitute for careful clinical examination. A negative mammogram does not negate a clinically suspicious finding and should not result in delay in biopsying a clinically suspicious abnormality. "Our facility is accredited by the [employer] Mammography Program."
== END ==
LOC: MAMMO 10:58
PROVIDERS: ATTEND Family Medicine
DX: Z12.31 Encounter for screening mammogram for malignant neoplasm of breast (principal)
CPT/HCPCS: 77067